=== PATIENT | male | born 1930 | race Caucasian/White ===

== ENCOUNTER 2016-09-19 07:28 | Day surgery (SDC) | payer OTHER ==
[2016-09-16 10:32] VITALS: BMI 25.8
[2016-09-19 08:16] LABS: ANION GAP 6 (8-16); CALCIUM 8.7 mg/dL (8.5-10.1); CO2 28 mmol/L (21-32); CREATININE 2.5 mg/dL (0.7-1.3); GLUCOSE,RANDOM 179 mg/dL (74-106)
[2016-09-19] MEDS ORDERED: oxyCODONE HCL 5 MG TABLET PO PRN (09:50)
[2016-09-19] MEDS ORDERED: ONDANSETRON 4 MG/2 ML VIAL IVPUSH PRN (09:50)
[2016-09-19] MEDS ORDERED: LACTATED RINGERS SOLUTION 1,000 ML IV SCH (10:00)
[2016-09-19] MEDS ORDERED: ePHEDrine SULFATE 50 MG/1 ML AMPULE ONE (10:24)
[2016-09-19] MEDS ORDERED: LEVOFLOXACIN 500 MG PREMIX BAG IVPB ONE (10:25)
[2016-09-19] MEDS ORDERED: ACETAMINOPHEN 1000 MG/100 ML VIAL (NON FORMULARY) IVPB ONE (12:10)
--- NOTE | 2016-09-19 12:37 | OP ---
Operative Note - Note: Operative Date: 09/19/16 Pre-Operative Diagnosis: bilateral ureteral stricure with hydronephrosis/ chronic renal disease/bph with neurogenic bladder Operation: cytoscopy/bilateral retrograde pyelogram/bilateral ureteroscopy/left ureteroscopic retreival of foreign body/bilateral stent exchange Findings: bilateral ureteral stricture secondary to J-hooking of ureter/proximal migration of left ureteral stent Post-Operative Diagnosis: Other (proximal migration of left ureteral stent) Surgeon: Roger Sims Anesthesia: General Drains & Tubes with Location: 6fr/24cm right ureteral stent. 6fr/26cm left ureteral stent
[2016-09-19 13:03] VITALS: PULSE 64
[2016-09-19 17:19] VITALS: BP 110/60; TEMP 98
--- NOTE | 2016-09-20 09:56 | PATH ---
Surgical Pathology Report Patient Name: LESLIE JUAREZ Med. Rec. #: [id number] /Age/Gender: 1930 (Age: 85) / M Account: [id number] Location: [facility] Taken: 09/19/2016 Received: 09/19/2016 Reported: 09/20/2016 Physicians: Roger Sims Specimen(s) Received A: OLD STENT, RIGHT B: OLD STENT, LEFT Clinical History Bilateral ureteral obstruction, renal insufficiency, BPH Final Diagnosis A. SAFETY ADVISOR, RIGHT URETER, REMOVAL: URETERAL STENT (GROSS ONLY). B. SAFETY ADVISOR, LEFT URETER, REMOVAL: URETERAL STENT (GROSS ONLY). Electronically Signed Jose Negrete M.D. Gross Description A. Received fresh labeled "old stent right," is a 38 cm in length [place], coiled portion of tubing, consistent with a ureteral stent. No soft tissue is present. No sections are submitted, gross only. B. Received fresh labeled "old stent left," is a 35 cm in length [place], coiled portion of tubing, consistent with a ureteral stent. No soft tissue is present. No sections are submitted, gross only. DL/09/19/2016 saudi/09/19/2016
--- NOTE | 2016-09-20 12:32 | OP ---
DATE OF OPERATION: 09/19/2016 PREOPERATIVE DIAGNOSES: Bilateral ureteral stricture with hydronephrosis, chronic kidney disease, benign prostatic hypertrophy with neurogenic bladder. PREOPERATIVE DIAGNOSES: Bilateral ureteral stricture with hydronephrosis, chronic kidney disease, benign prostatic hypertrophy with neurogenic bladder, proximally migrated left ureteral stent. SURGEON: Socorro Jeffrey MD ANESTHESIA: General. DESCRIPTION OF PROCEDURE: The patient was brought in the operating room and placed in the supine position on the operating room table. General anesthesia and preoperative antibiotics were administered. The patient was then placed in the dorsal lithotomy position. His Méndez catheter was removed. He was prepped and draped in the usual sterile manner. Cystoscopy was performed, and a 3+ obstructive prostate was noted. The bladder was entered, and 2+ bladder trabeculation with multiple cellules was noted. The right ureteral stent was removed. Attempt at passing a wire proximally via the cystoscope was unsuccessful. Ureteroscopy was necessary in order to angulate the wire in the direction of the ureter. There was distal J hooking of the ureter secondary to significant benign prostatic hypertrophy. A retrograde pyelogram was done, which showed a high-grade hydroureteronephrosis. The wire was passed proximally. Subsequently, a 6-Namib[place] 24-cm stent was placed utilizing the Seldinger technique under direct cystoscopic visualization. The left ureteral orifice could not be identified. The left ureteral stent could not be identified. Fluoroscopy showed that the stent was indeed in the ureter. With difficulty, the left ureteral orifice was identified. Attempts at passing the wire proximally were unsuccessful. Ureteroscopy was utilized, and a wire was passed proximally. Similar J hooking that was seen on the right was present on the left. At this point, the stent was noted in the distal ureter. This was grasped with a grasping forceps under direct visualization. The stent was removed. With a wire in place, a retrograde pyelogram was then performed, which showed a high-grade hydroureteronephrosis. A 6-Namib[place] 26-cm left ureteral stent was then placed utilizing the Seldinger technique under direct cystoscopic visualization. No complications were noted. The patient tolerated the procedure very well. The patient was left with a 16-Namibian Méndez at the end of the procedure. The patient is maintained with a Méndez catheter due to obstructive uropathy. The patient is a poor surgical candidate, however, is contemplating a transurethral resection of the prostate. SOCORRO JEFFREY M.D. [id number]
== END 2016-09-19 14:00 | disposition home or self-care (01) ==
LOC: JASU-SURG 07:28
PROVIDERS: ATTEND Urology
PROC: 0TP98DZ Removal of Intraluminal Device from Ureter, Via Natural or Artificial Opening Endoscopic (ICD-10-PCS; 2016-09-19)
PROC: 0T788DZ Dilation of Bilateral Ureters with Intraluminal Device, Via Natural or Artificial Opening Endoscopic (ICD-10-PCS; 2016-09-19)
PROC: BT14ZZZ Fluoroscopy of Kidneys, Ureters and Bladder (ICD-10-PCS; principal; 2016-09-19 09:00)
DX: N13.1 Hydronephrosis with ureteral stricture, not elsewhere classified (principal); N40.0 Benign prostatic hyperplasia without lower urinary tract symptoms; N18.9 Chronic kidney disease, unspecified; N31.9 Neuromuscular dysfunction of bladder, unspecified; T83.89XA Other specified complication of genitourinary prosthetic devices, implants and grafts, initial encounter
CPT/HCPCS: 36415; 76000-TC; 80048; 88300-TC; 94760